=== PATIENT | male | born 1960 | race Asian ===

== ENCOUNTER 2023-08-19 21:27 | Emergency (ER) | payer OTHER, MEDICAID ==
[~2023-08-19] VITALS: Ht 167.6 cm; Wt 80.0 kg
[~2023-08-19 21:27] MED LIST: BENZ0.5T32 PO; DIVA-112 PO; FLUP2.5T24 PO
[2023-08-19 21:36] VITALS: TEMP 98
[2023-08-19 23:34] VITALS: BP 139/75; PULSE 72; RESP 16
== END 2023-08-20 00:15 | disposition home or self-care (01) ==
LOC: EMS 21:38
DX: S50.811A Abrasion of right forearm, initial encounter (principal); W01.0XXA Fall on same level from slipping, tripping and stumbling without subsequent striking against object, initial encounter; Y93.01 Activity, walking, marching and hiking; Y92.89 Other specified places as the place of occurrence of the external cause; Y99.8 Other external cause status
CPT/HCPCS: 99283; Z7502

== ENCOUNTER 2024-07-14 21:30 | Emergency (ER) | payer OTHER, MEDICAID ==
[~2024-07-14] VITALS: Ht 170.2 cm; Wt 70.0 kg
[2024-07-14 21:50] VITALS: BP 124/73; PULSE 60; RESP 18; TEMP 97.7; O2SAT 96
[2024-07-14 22:00] LABS: GLUCOMETER DEV NAME(LOC) ER.7; GLUCOSE,POINT OF CARE 129 MG/DL (70-110)
[2024-07-14 22:24] LABS: EOSINOPHILS % (AUTO) 12.8 % (1.0-6.0); HEMATOCRIT 38.7 % (41-53); HEMOGLOBIN 12.8 g/dL (13.5-17.5); LYMPHOCYTES # (AUTO) 1.2 K/uL (1.0-4.8); LYMPHOCYTES % (AUTO) 21.2 % (22.0-44.0); MEAN CORPUSCULAR HEMOGLOBIN 28.3 pg (26.0-34.0); MEAN CORPUSCULAR VOLUME 86 fL (80-100); MONOCYTES # (AUTO) 0.5 K/uL (0.1-1.0); MONOCYTES % (AUTO) 10.1 % (2.0-9.0); NEUTROPHILS % (AUTO) 54.9 % (40.0-70.0); PLATELET COUNT (AUTO) 228 K/uL (150-450); RED BLOOD CELL COUNT(AUTO) 4.51 MIL/uL (4.50-5.90); RED CELL DISTRIBUTION WIDTH 15.5 % (11.5-14.5); WHITE BLOOD COUNT (AUTO) 5.5 K/uL (4.5-11.0)
[2024-07-14 22:30] LABS: ANION GAP 10 mmol/L (8-16); CALCIUM, TOTAL 9.3 mg/dL (8.8-10.5); CARBON DIOXIDE 24 mmol/L (22-29); CHLORIDE 100 mmol/L (98-107); CREATININE 0.85 mg/dL (0.60-1.30); GLOMERULAR FILTR. RATE CALC > 60 mL/min (>60); GLUCOSE,RANDOM 117 mg/dL (70-110); POTASSIUM 3.9 mmol/L (3.5-5.1); SODIUM SERUM 134 mmol/L (136-145); UREA NITROGEN, BLOOD 13 mg/dL (7-18)
[2024-07-14] MEDS: METOCLOPRAMIDE HCL 10 MG TABLET PO ONE (22:31)
[2024-07-14] MEDS: ACETAMINOPHEN 500 MG TABLET PO ONE (22:31)
[2024-07-14 22:36] LABS: ALBUMIN 3.5 g/dL (3.4-5.0); BILIRUBIN,DIRECT 0.1 mg/dL (0.00-0.20); BILIRUBIN,TOTAL 0.4 mg/dL (0.1-1.0); TOTAL PROTEIN, SERUM 7.7 g/dL (6.4-8.2)
[2024-07-14 23:16] LABS: COVID AG,FIA SOURCE NASAL SWAB
[2024-07-14 23:33] LABS: INFLUENZA TYPE A NEGATIVE FOR TYPE A (NEGATIVE); INFLUENZA TYPE B NEGATIVE FOR TYPE B (NEGATIVE); SARS-COV2 (COVID) ANTIGEN,FIA Negative (Negative)
[2024-07-15] MEDS ORDERED: ONDA-104 PO (00:35)
== END 2024-07-15 01:25 | disposition home or self-care (01) ==
LOC: EMS 21:30
DX: R11.0 Nausea (principal); R51.9 Headache, unspecified; E11.9 Type 2 diabetes mellitus without complications; F20.9 Schizophrenia, unspecified; Z79.899 Other long term (current) drug therapy; Z20.822 Contact with and (suspected) exposure to COVID-19
CPT/HCPCS: 80048; 80076; 82962; 85025; 87804; 99283